=== PATIENT | female | born 1970 | race Caucasian/White ===

== ENCOUNTER 2021-11-22 09:13 | Outpatient (CLI) | payer OTHER | END 2021-11-22 09:17 | disposition home or self-care (01) | LOC: SONOGRAMA 09:13 | PROVIDERS: ATTEND Pathology Anatomic Pathology & Clinical Pathology | DX: E04.1 Nontoxic single thyroid nodule (principal) ==

== ENCOUNTER 2024-03-04 08:08 | Outpatient (CLI) | payer OTHER | END 2024-03-04 08:14 | disposition home or self-care (01) | LOC: SONOGRAMA 08:08 | PROVIDERS: ATTEND Pathology Anatomic Pathology & Clinical Pathology | DX: D34 Benign neoplasm of thyroid gland (principal); E06.3 Autoimmune thyroiditis; E04.1 Nontoxic single thyroid nodule ==